=== PATIENT | male | born 1940 | race Caucasian/White ===

== ENCOUNTER 2018-07-16 09:52 | Emergency (ER) | payer OTHER ==
[~2018-07-16] VITALS: Ht 177.8 cm; Wt 81.6 kg
[2018-07-16] MEDS ORDERED: PLAVIX75 MG PO (09:58)
[2018-07-16] MEDS ORDERED: LIPITOR40 MG PO (09:59)
[2018-07-16] MEDS ORDERED: JANUMET 50-1,01 EACH PO (09:59)
[2018-07-16] MEDS ORDERED: METOPROLOL SUCC25 MG PO (09:59)
== END 2018-07-16 14:28 | disposition home or self-care (01) ==
LOC: ER 09:52
DX: J44.1 Chronic obstructive pulmonary disease with (acute) exacerbation (principal); J22 Unspecified acute lower respiratory infection; J11.1 Influenza due to unidentified influenza virus with other respiratory manifestations; J45.998 Other asthma